=== PATIENT | female | born 1945 | race Hispanic/Latino ===

== ENCOUNTER 2023-05-23 18:45 | Emergency (ER) | payer OTHER ==
[~2023-05-23] VITALS: Ht 154.9 cm; Wt 68.9 kg
[2023-05-23 19:52] VITALS: BP 165/77; PULSE 85; RESP 20
== END 2023-05-23 22:01 | disposition home or self-care (01) ==
LOC: EDH 18:45
DX: S00.03XA Contusion of scalp, initial encounter (principal); E78.00 Pure hypercholesterolemia, unspecified; E11.9 Type 2 diabetes mellitus without complications; I10 Essential (primary) hypertension; W01.0XXA Fall on same level from slipping, tripping and stumbling without subsequent striking against object, initial encounter; Y93.89 Activity, other specified; Y92.89 Other specified places as the place of occurrence of the external cause; Y99.8 Other external cause status
CPT/HCPCS: 70450; 72125